=== PATIENT | female | born 1955 | race Hispanic/Latino ===

== ENCOUNTER → 2017-11-24 | Outpatient (CLI) | payer OTHER ==
[~2017-11-24] MED LIST: ASPIR 8181 MG PO; FLOVENT HFA12 GM; LEXAPRO10 MG PO; LOSARTAN POTASS25 MG PO; METOPROLOL TART25 MG PO; MULTI-VITAMIN1 EACH PO; SINGULAIR10 MG PO
--- NOTE | 2017-11-24 10:38 | Diagnostic Imaging Report ---
EXAMINATION: MRI of the brain without contrast. HISTORY: Left-sided headache and tightness on the left side of the face. Migraine headaches. COMPARISON: None. TECHNIQUE: Sagittal T2; axial DWI, T2, FLAIR, T1-IR, T2 gradient echo; coronal FLAIR. IMAGE QUALITY: Adequate. FINDINGS: Parenchyma: 1. No abnormal signal intensity 2. No mass, hemorrhage, acute or chronic infarcts. Skull: Unremarkable. Vessels: Expected flow voids present in the major arteries and dural sinuses. Extra-axial spaces: No abnormal signal intensity or mass effect. Brain volume: Within normal limits for age. Ventricles: No hydrocephalus or displacement. Foramen magnum: Unremarkable. Sella: Unremarkable. Paranasal / mastoid sinuses: No significant inflammatory disease. IMPRESSION: No intracranial abnormalities. Signed by: Dr. Edie Driver M.D. on 11/24/2017 10:35 AM
== END ==
LOC: MRI 07:59
PROVIDERS: ATTEND Psychiatry & Neurology Clinical Neurophysiology
DX: G43.019 Migraine without aura, intractable, without status migrainosus (principal)
CPT/HCPCS: 70551

== ENCOUNTER 2018-05-26 12:47 | Emergency (ER) | payer OTHER ==
[~2018-05-26] VITALS: Ht 170.2 cm; Wt 95.3 kg
--- OUTSIDE RECORDS SUMMARY | 2018-05-26 12:50 | XMS REPORT ---
Author Author Liliana Granger [facility] eClinicalWorks Address Unknown Phone Unavailable Care Team Providers Care Training Executive Name Role Phone Liliana Granger Unavailable Allergies, Adverse Reactions, Alerts Substance Reaction Event Type sulfa Info Not Available Drug Allergy Encounters Encounter Location Date FYI [facility] Dec 12, 2013 Refill [facility] Jan 23, 2014 MEDICATION REFILL [facility] Mar 29, 2014 Refill [facility] Oct 31, 2014 consult on stress and anxiety [facility] Sep 26, 2013 DISCUSS MEDS [facility] Oct 31, 2013 FYI/Referral [facility] Dec 05, 2013 CPAP Follow Up [facility] Jan 21, 2015 FOLLOW UP [facility] Nov 21, 2014 Night 2 Sleep Study [facility] Jan 08, 2015 New Refill Request [facility] Feb 16, 2015 leg cramps [facility] Mar 13, 2015 SOFT TISSUE/LAURA [facility] Feb 05, 2015 New Refill Request [facility] Feb 13, 2015 Problems Problem Type Condition ICD-9 Code Onset Dates Condition Status Problem Anxiety F41.9 Active Problem Smoker 305.1 Active Problem TIA (transient ischemic attack) 435.9 Active Problem Depression with anxiety F41.8 Active Problem Tobacco abuse counseling Z71.6 Active Problem Essential hypertension I10 Active Problem Obstructive sleep apnea G47.33 Active Problem Prediabetes R73.09 Active Problem Hyperglycemia R73.9 Active Problem Vitamin D deficiency E55.9 Active Assessment Morbid obesity due to excess calories E66.01 Active Assessment Headache R51 Active Assessment Depression F32.9 Active Assessment BMI 35.0-35.9,adult Z68.35 Active Assessment Leg cramps R25.2 Active Medications Medication Code System Code Instructions Start Date End Date Status Dosage Fish Oil 9flats [address]-82 1000 MG Orally Once a day Active 1 capsule Metoprolol Succinate ER [facility] [address]-68 25 MG Orally Once a day Active 1 tablet Losartan Potassium [facility] [address]-11 50.0 Milligram Orally Once a day Active 1 tablet Aspir-81 [facility] [address]-62 81 MG Orally Once a day Active 1 tablet Lexapro [facility] [address]-05 20 mg Orally Once a day Oct 31, 2013 Active 1 tablet Klonopin [facility] [address]-82 0.5 MG Orally once a day PRN Sep 26, 2013 Active 1 tablet Omeprazole [facility] [address]-84 20 mg Orally Once a day Active 1 capsule Lamisil [facility] [address]-68 250 MG Orally Once a day Jan 21, 2015 April 21, 2015 Active 1 tablet Multi For Her 50+ [facility] [address]88 Orally Active Unknown Social History Social History Element Qualifiers Date Reported 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 3 Mar 13, 2015 Last Colonoscopy: . 2007Mar 13, 2015 Tobacco Use: . Are you a: current smoker, How many packs per day? less than a half pack, How many years have you smoked? greater than 30 Mar 13, 2015 Flu Vaccine: . 2014Mar 13, 2015 Use of recreational / street drugs? . Answer: No Mar 13, 2015 Do you have pets? . Status: Yes, Type: dog(s) Mar 13, 2015 Ethnicity . Status , Is somali your primary language? Yes Mar 13, 2015 Marital Status: . , Mar 13, 2015 Caffeine intake? . Status: Yes, What type: Coffee, Soft Drinks Mar 13, 2015 Do you exercise? . Answer: No Mar 13, 2015 Depression Screening: . positive Mar 13, 2015 Do you drink alcohol? . Status: Yes, Type: Wine, Liquor, How often? Rarely, How much? Socially Mar 13, 2015 Family history Qualifier Description Comment Date Reported Maternal Grandmother Comment not available Mar 13, 2015 Paternal Grandmother Comment not available Mar 13, 2015 Siblings alive Comment not available Mar 13, 2015 Maternal Grandfather Comment not available Mar 13, 2015 Children alive 1 son - PTSD 2 sons - high cholesterol Mar 13, 2015 Father Comment not available Mar 13, 2015 Paternal Grandfather Comment not available Mar 13, 2015 Mother Comment not available Mar 13, 2015 Other: Comment not available Mar 13, 2015 Vital Signs Date/Time: Mar 13, 2015 Weight 219 lbs Height 66 in Cardiac Monitoring Heart Rate 60 /min Blood Pressure Diastolic 76 mm Hg Blood Pressure Systolic 130 mm Hg Results Comp. Metabolic Panel (14) Summary Purpose eClinicalWorks Submission
--- OUTSIDE RECORDS SUMMARY | 2018-05-26 12:50 | XMS REPORT ---
Author Author Nisha Brownlee eClinicalWorks Address Unknown Phone Unavailable Care Team Providers Care Upholstery Handler Name Role Phone Nisha Brownlee CP Unavailable Allergies, Adverse Reactions, Alerts Substance Reaction Event Type sulfa Info Not Available Drug Allergy Encounters Encounter Location Date FYI [facility] Dec 12, 2013 Refill [facility] Jan 23, 2014 MEDICATION REFILL [facility] Mar 29, 2014 Refill [facility] Oct 31, 2014 consult on stress and anxiety [facility] Sep 26, 2013 DISCUSS MEDS [facility] Oct 31, 2013 FYI/Referral [facility] Dec 05, 2013 CPAP Follow Up [facility] Jan 21, 2015 FOLLOW UP [facility] Nov 21, 2014 Night 2 Sleep Study [facility] Jan 08, 2015 fMLA paper work [facility] Mar 17, 2015 New Refill Request [facility] Feb 16, 2015 leg cramps [facility] Mar 13, 2015 SOFT TISSUE/LAURA [facility] Feb 05, 2015 New Refill Request [facility] Feb 13, 2015 Problems Problem Type Condition ICD-9 Code Onset Dates Condition Status Problem Anxiety F41.9 Active Problem Obstructive sleep apnea G47.33 Active Problem Prediabetes R73.09 Active Problem Cramp of both lower extremities R25.2 Active Problem Essential hypertension I10 Active Problem Left-sided headache R51 Active Problem Hyperglycemia R73.9 Active Problem Vitamin D deficiency E55.9 Active Problem Depression with anxiety F41.8 Active Problem Tobacco abuse counseling Z71.6 Active Assessment Cramp of both lower extremities R25.2 Active Assessment Depression with anxiety F41.8 Active Assessment Obstructive sleep apnea G47.33 Active Assessment Left-sided headache R51 Active Assessment Prediabetes R73.09 Active Assessment Essential hypertension I10 Active Problem TIA (transient ischemic attack) G45.9 Active Medications Medication Code System Code Instructions Start Date End Date Status Dosage Lamisil [facility] [address]-83 250 MG Orally Once a day Jan 21, 2015 April 21, 2015 Active 1 tablet Tramadol-Acetaminophen [facility] [address]-85 37.5-325 MG Orally Q12 PRN Mar 17, 2015 Mar 31, 2015 Active 2 tablets as needed Aspir-[address] [facility] [address]-63 81 MG Orally Once a day Active 1 tablet Multi For Her 50+ [facility] [address] Orally Active Unknown Losartan Potassium [facility] [address]-61 50.0 Milligram Orally Once a day Active 1 tablet Metoprolol Succinate ER [facility] [address]-14 25 MG Orally Once a day Active 1 tablet Lexapro [facility] [address]-15 20 mg Orally Once a day Oct 31, 2013 Active 1 tablet Fish Oil [facility] [address]-71 1000 MG Orally Once a day Active 1 capsule Social History Social History Element Qualifiers Date Reported 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 2007Mar 17, 2015 Tobacco Use: . Are you a: current smoker, How many packs per day? less than a half pack, How many years have you smoked? greater than 30 Mar 17, 2015 Flu Vaccine: . 2014Mar 17, 2015 Use of recreational / street drugs? . Answer: No Mar 17, 2015 Do you have pets? . Status: Yes, Type: dog(s) Mar 17, 2015 Ethnicity . Status , Is persian your primary language? Yes Mar 17, 2015 Marital Status: . , Mar 17, 2015 Caffeine intake? . Status: Yes, What type: Coffee, Soft Drinks Mar 17, 2015 Do you exercise? . Answer: No Mar 17, 2015 Depression Screening: . positive Mar 17, 2015 Do you drink alcohol? . Status: Yes, Type: Wine, Liquor, How often? Rarely, How much? Socially Mar 17, 2015 Vital Signs Date/Time: Mar 17, 2015 Weight 220 lbs Height 66 in Cardiac Monitoring Heart Rate 74 /min Blood Pressure Diastolic 80 mm Hg Blood Pressure Systolic 122 mm Hg Summary Purpose eClinicalWorks Submission
--- OUTSIDE RECORDS SUMMARY | 2018-05-26 12:50 | XMS REPORT ---
Author Author Liset Kohli Organization eClinicalWorks Address Unknown Phone Unavailable Care Team Providers Care Heavy Duty Diesel Mechanic Name Role Phone Liset Kohli Unavailable Encounters Encounter Location Date FYI [facility] Dec 12, 2013 Refill [facility] Jan 23, 2014 MEDICATION REFILL [facility] Mar 29, 2014 Refill [facility] Oct 31, 2014 consult on stress and anxiety [facility] Sep 26, 2013 DISCUSS MEDS [facility] Oct 31, 2013 FYI/Referral [facility] Dec 05, 2013 CPAP Follow Up [facility] Jan 21, 2015 FOLLOW UP [facility] Nov 21, 2014 Night 2 Sleep Study [facility] Jan 08, 2015 fMLA paper work [facility] Mar 17, 2015 Unknown [facility] Mar 24, 2015 New Refill Request [facility] Feb 16, 2015 leg cramps [facility] Mar 13, 2015 SOFT TISSUE/LAURA [facility] Feb 05, 2015 New Refill Request [facility] Feb 13, 2015 Problems Problem Type Condition ICD-9 Code Onset Dates Condition Status Problem Anxiety F41.9 Active Problem Obstructive sleep apnea G47.33 Active Problem Prediabetes R73.09 Active Problem TIA (transient ischemic attack) G45.9 Active Problem Cramp of both lower extremities R25.2 Active Problem Essential hypertension I10 Active Problem Left-sided headache R51 Active Problem Hyperglycemia R73.9 Active Problem Vitamin D deficiency E55.9 Active Problem Depression with anxiety F41.8 Active Problem Tobacco abuse counseling Z71.6 Active Social History Social History Element Qualifiers Date [...] 17, 2015 Ethnicity . Status , Is nicaraguan your primary language? Yes Mar 17, 2015 Marital Status: . , Mar 17, 2015 Caffeine intake? . Status: Yes, What type: Coffee, Soft Drinks Mar 17, 2015 Do you exercise? . Answer: No Mar 17, 2015 Depression Screening: . positive Mar 17, 2015 Do you drink alcohol? . Status: Yes, Type: Wine, Liquor, How often? Rarely, How much? Socially Mar 17, 2015 Summary Purpose eClinicalWorks Submission
--- OUTSIDE RECORDS SUMMARY | 2018-05-26 12:50 | XMS REPORT | Encounter Summary ---
Author Organization Unknown Address [address] [place] [id number] Phone [phone] Care Team Providers Care Laborer Stores Name Role Phone Lavell Ramos 3 [phone] Reason for Visit Medical Complaint Instructions 1. Viral upper respiratory tract infection benzonatate 200 mg capsule Medrol (Shalom) 4 mg tablets in a dose pack rapid flu (A+B) 2. Pain in throat sore throat: care instructions rapid strep group A, throat 3. Headache headache: care instructions Discussion Note Pt is in NAD; Verbalizes understanding of all instructions with no questions at this time. Plan of Care Patient Instructions Take Benzonatate for cough as directed. Use over the counter chloraseptic spray and use as per package insert for sore throat. Start trial of over the counter afrin for nasal congestion for 3 days only. Continue flonase nasal spray and montelukast (singulair) as instructed by your PCP. Alternate with Ibuprofen and acetaminophen every 4hrs as needed for pain/fever/headache. Proper hydration and rest. Take steroid taper withh food as directed. Return to work/school if free of fever for 24-hrs. Do not share any utensils/cups, no kissing, recommend hand washing after coughing/sneezing/blowing nose and cover face when you do so. Take medications as prescribed. Return to clinic or follow up with your PCP within 2- 3 days if symptoms worsen as discussed. Reminders Provider Appointments None recorded. Lab Rapid Flu (A+B) 01/21/2017 [facility] Rapid Strep Group a, Throat 01/21/2017 [facility] Referral None recorded. Procedures None recorded. Surgeries None recorded. Imaging None recorded. Medications Name Start Date benzonatate 200 mg capsule Take 1 capsule 3 times a day by oral route as needed. escitalopram 20 mg tablet fluticasone 50 mcg/actuation nasal spray,suspension 01/21/2017 losartan 50 mg tablet Medrol (Shalom) 4 mg tablets in a dose pack TAKE PO DIRECTED montelukast 10 mg tablet 01/21/2017 Medications Administered None recorded. Vitals Height Weight BMI Blood Pressure 5 ft 7 in 210 lbs 32.9 kg/m2 134/90 mm[Hg] Lab Results Date Name Specimen Result Interpretation Description Value Range Status Address Rapid Strep Group a, Throat Result negative [facility]: [facility] Swab Location Left and Right tonsillar pillars [facility]: [address] [facility] Rapid Flu (A+B) Influenza a negative [facility]: [address] [facility] Influenza B negative [facility]: [facility] Allergies Code Code System Name Reaction Severity Status Onset 152867 RxNorm Bactrim Active Problems None recorded. Procedures Date Name Performed by Appendectomy Information not available Tonsillectomy Information not available Cholecystectomy Information not available Tubal Ligation Information not available Vaccine List None recorded. Social History Smoking Status Current Every Day Smoker Past Encounters 01/21/2017 Viral Upper Respiratory Tract Infection; Pain in Throat; Headache Nellie Avila, TRADING MANAGER-C: [address] [place] [address], Ph. History of Present Illness [id number] Reported By: Patient HPI: Quality: symptoms worse during the day. Duration: 2 days. Context: no ill contacts, no tick/insect bites, no recent travel, no new medications. Associated Symptoms: no fever/chills, no muscle aches, no rash, no lethargy, headache, cough, nasal passage blockage (stuffiness), nasal discharge; sore throat. Modifying Factors nothing gives relief Review of Systems:ROS as noted in the HPI Review of Systems Basic Reported By: Patient Physical Exam Adult Basic, 14-21 Yr Male, Adult Female Complete, Adult Male Complete Reported By: Patient Constitutional: General Appearance: healthy-appearing, well-nourished, well-developed. Level of Distress: NAD. Ambulation: ambulating normally Psychiatric: Mental Status: active and alert. Orientation: to time, to place, to person Eyes: Lids and Conjunctivae: non-injected, no discharge, no pallor. Pupils: PERRLA, equal size, round, reactive to light. Corneas: grossly intact. EOM: EOMI. Lens: clear. Vision: peripheral vision grossly intact [id number]-[id number]: Ears: no lesions on external ear, no outer ear tenderness, EACs clear, TMs clear. Hearing: no hearing loss. Nose: no lesions on external nose, nares patent, no septal deviation, nasal passages clear, no sinus tenderness, nasal discharge--rhinorrhea, post nasal drip; pink and edematous nasal turbinates bilaterally. Lips, Teeth, and Gums: no mouth or lip ulcers, no bleeding gums, normal dentition. Oropharynx: moist mucous membranes, no erythema, no exudates, tonsils absent Neck: Neck: supple. Lymph Nodes: no cervical LAD Lungs: Respiratory effort: no dyspnea, no tachypnea, no use of accessory muscles, no intercostal retractions. Auscultation: breath sounds normal, good air movement Cardiovascular: Heart Auscultation: RRR, no murmurs Neurologic: Gait and Station: normal gait, normal station. Cranial Nerves: grossly intact. Sensation: grossly intact. Reflexes: deep tendon reflexes 2+ bilaterally throughout
--- OUTSIDE RECORDS SUMMARY | 2018-05-26 12:50 | XMS REPORT | Continuity of Care Document ---
Author Author [facility] Interface Address Unknown Phone Unavailable Problems Problem Status Onset Date Classification Date Reported Comments Source Viral upper respiratory tract infection 01/21/2017 Diagnosis 01/21/2017 [facility] Pain in throat 01/21/2017 Diagnosis 01/21/2017 [facility] Headache 01/21/2017 Diagnosis 01/21/2017 [facility] Obstructive sleep apnea Active Problem 10/18/2015 [facility] Hyperglycemia Active Problem 10/18/2015 [facility] Vitamin D deficiency Active Problem 10/18/2015 [facility] Seasonal allergies Active Problem 10/18/2015 [facility] Left-sided headache Active Problem 10/18/2015 [facility] Moderate persistent asthma with acute exacerbation Active Problem 10/18/2015 [facility] Depression with anxiety Active Problem 10/18/2015 [facility] Tobacco abuse counseling Active Problem 10/18/2015 [facility] Cramp of both lower extremities Active Problem 10/18/2015 [facility] Essential hypertension Active Problem 10/18/2015 [facility] Varicose veins of lower extremity Active Problem 10/18/2015 [facility] TIA Active Problem 10/18/2015 [facility] Anxiety Active Problem 10/18/2015 [facility] Atrial fibrillation, unspecified type Active Problem 10/18/2015 [facility] Prediabetes Active Problem 10/18/2015 [facility] Smoker Active Problem 03/15/2015 [facility] TIA Active Problem 03/15/2015 [facility] Morbid obesity due to excess calories Active Diagnosis 03/15/2015 [facility] Headache Active Diagnosis 03/15/2015 [facility] Depression Active Diagnosis 03/15/2015 [facility] BMI 35.0-35.9,adult Active Diagnosis 03/15/2015 [facility] Leg cramps Active Diagnosis 03/15/2015 [facility] Acute right ankle pain Active Diagnosis 08/15/2015 [facility] Cough Active Diagnosis 05/08/2015 [facility] Medications Medication Details Route Status Patient Instructions Ordering Provider Order Date Source Fluticasone propionate 0.05 MG/ACTUAT Metered Dose Nasal Dennard fluticasone 50 mcg/actuation nasal spray,suspension Active 01/21/2017 [facility] montelukast 10 MG Oral Tablet montelukast 10 mg tablet Active 01/21/2017 [facility] Naproxen 1 tablet as needed Orally Active 500 mg Orally every 12 hrs [place] 08/13/2015 [facility] Albuterol Sulfate HFA 2 puffs as needed Inhalation Active 108 MCG/ACT Inhalation every 4-6 hrs PRN [place] 05/06/2015 [facility] Benzonatate 1 capsule as needed Orally Active 200 MG Orally Three times a day PRN [place] 05/06/2015 [facility] Tramadol-Acetaminophen 2 tablets as needed Orally Active 37.5- 325 MG Orally Q12 PRN [place] 03/17/2015 [facility] Lamisil 1 tablet Orally Active 250 MG Orally Once a day [place] 01/21/2015 [facility] Lexapro 1 tablet Orally Active 20 mg Orally Once a day [place] 10/31/2013 [facility] Klonopin 1 tablet Orally Active 0.5 MG Orally once a day PRN [place] 09/26/2013 [facility] benzonatate 200 MG Oral Capsule benzonatate 200 mg capsule Take 1 capsule 3 times a day by oral route as needed. Active [facility] Escitalopram 20 MG Oral Tablet escitalopram 20 mg tablet Active [facility] Losartan Potassium 50 MG Oral Tablet losartan 50 mg tablet Active [facility] Medrol (Shalom) 4 mg tablets in a dose pack Medrol (Shalom) 4 mg tablets in a dose pack TAKE PO DIRECTED Active [facility] Fish Oil 1 capsule Orally Active 1000 MG Orally Once a day [facility] Metoprolol Succinate ER 1 tablet Orally Active 25 MG Orally Once a day [facility] Losartan Potassium 1 tablet Orally Active 50 MG Orally Once a day [facility] Aspir-81 1 tablet Orally Active 81 MG Orally Once a day Kem [facility] Omeprazole 1 capsule Orally Active 20 mg Orally Once a day [place] [facility] Multi For Her 50+ Unknown Orally Active Orally Kem [facility] Singulair 1 tablet in the evening Orally Active 10 mg Orally Once a day Kem [facility] Allergies, Adverse Reactions, Alerts Substance Category Reaction Severity Reaction type Status Date Reported Comments Source sulfa Adverse Reaction Info Not Available Adverse Reaction Active 08/13/2015 [facility] Bactrim Allergy to substance 01/21/2017 [facility] Immunizations Immunization Date Given Site Status Last Updated Comments Source Results Order Name Results Value Reference Range Date Interpretation Comments Source RESULT negative 01/21/2017 [facility] SWAB LOCATION Left and Right tonsillar pillars 01/21/2017 [facility] Influenza A negative 01/21/2017 [facility] Influenza B negative 01/21/2017 [facility] Vital Signs Vital Sign Value Date Comments Source Diastolic (mm Hg) 90 01/21/2017 [facility] Height 67 01/21/2017 [facility] Systolic (mm Hg) 134 01/21/2017 [facility] Weight 210 01/21/2017 [facility] Weight 229 08/13/2015 [facility] Height 66 08/13/2015 [facility] Heart Rate 78 08/13/2015 [facility] Diastolic (mm Hg) 80 08/13/2015 [facility] Systolic (mm Hg) 130 08/13/2015 [facility] Weight 226 05/06/2015 [facility] Height 66 05/06/2015 [facility] Heart Rate 80 05/06/2015 [facility] Diastolic (mm Hg) 80 05/06/2015 [facility] Systolic (mm Hg) 130 05/06/2015 [facility] Weight 220 03/17/2015 [facility] Height 66 03/17/2015 [facility] Heart Rate 74 03/17/2015 [facility] Diastolic (mm Hg) 80 03/17/2015 [facility] Systolic (mm Hg) 122 03/17/2015 [facility] Weight 219 03/13/2015 [facility] Height 66 03/13/2015 [facility] Heart Rate 60 03/13/2015 [facility] Diastolic (mm Hg) 76 03/13/2015 [facility] Systolic (mm Hg) 130 03/13/2015 [facility] Encounters Location Location Details Encounter Type Encounter Number Reason For Visit Attending Provider ADM Date DC Date Status Source [facility] consult on stress and anxiety [id number] 09/26/2013 09/26/2013 [facility] consult on stress and anxiety [id number] 09/26/2013 09/26/2013 [facility] consult on stress and anxiety [id number] 09/26/2013 09/26/2013 [facility] consult on stress and anxiety [id number] 09/26/2013 09/26/2013 [facility] consult on stress and anxiety [id number] 09/26/2013 09/26/2013 [facility] consult on stress and anxiety [id number] 09/26/2013 09/26/2013 [facility] consult on stress and anxiety [id number] 09/26/2013 09/26/2013 [facility] consult on stress and anxiety [id number] 09/26/2013 09/26/2013 [facility] DISCUSS MEDS [id number] 10/31/2013 10/31/2013 [facility] DISCUSS MEDS [id number] 10/31/2013 10/31/2013 [facility] DISCUSS MEDS [id number] 10/31/2013 10/31/2013 [facility] DISCUSS MEDS [id number] 10/31/2013 10/31/2013 [facility] DISCUSS MEDS [id number] 10/31/2013 10/31/2013 [facility] DISCUSS MEDS [id number] 10/31/2013 10/31/2013 [facility] DISCUSS MEDS [id number] 10/31/2013 10/31/2013 [facility] DISCUSS MEDS [id number] 10/31/2013 10/31/2013 [facility] FYI/Referral [id number] 12/05/2013 12/05/2013 [facility] FYI/Referral [id number] 12/05/2013 12/05/2013 [facility] FYI/Referral [id number] 12/05/2013 12/05/2013 [facility] FYI/Referral [id number] 12/05/2013 12/05/2013 [facility] FYI/Referral [id number] 12/05/2013 12/05/2013 [facility] FYI/Referral [id number] 12/05/2013 12/05/2013 [facility] FYI/Referral [id number] 12/05/2013 12/05/2013 [facility] FYI/Referral [id number] 12/05/2013 12/05/2013 [facility] [id number] 12/12/2013 12/12/2013 [facility] [id number] 12/12/2013 12/12/2013 [facility] [id number] 12/12/2013 12/12/2013 [facility] [id number] 12/12/2013 12/12/2013 [facility] [id number] 12/12/2013 12/12/2013 [facility] [place] [id number] 12/12/2013 12/12/2013 [facility] [id number] 12/12/2013 12/12/2013 [facility] [place]NA[place] [id number] 12/12/2013 12/12/2013 [facility] Refill [id number] 01/23/2014 01/23/2014 [facility] Refill [id number] 01/23/2014 01/23/2014 [facility] Refill [id number] 01/23/2014 01/23/2014 [facility] Refill [id number] 01/23/2014 01/23/2014 [facility] Refill [id number] 01/23/2014 01/23/2014 [facility] Refill [id number] 01/23/2014 01/23/2014 [facility] Refill [id number] 01/23/2014 01/23/2014 [facility] Refill [id number] 01/23/2014 01/23/2014 [facility] MEDICATION REFILL [id number] 03/29/2014 03/29/2014 [facility] MEDICATION REFILL [id number] 03/29/2014 03/29/2014 [facility] MEDICATION REFILL [id number] 03/29/2014 03/29/2014 [facility] MEDICATION REFILL [id number] 03/29/2014 03/29/2014 [facility] MEDICATION REFILL [id number] 03/29/2014 03/29/2014 [facility] MEDICATION REFILL [id number] 03/29/2014 03/29/2014 [facility] MEDICATION REFILL [id number] 03/29/2014 03/29/2014 [facility] MEDICATION REFILL [id number] 03/29/2014 03/29/2014 [facility] Refill [id number] 10/31/2014 10/31/2014 [facility] Refill [id number] 10/31/2014 10/31/2014 [facility] Refill [id number] 10/31/2014 10/31/2014 [facility] Refill [id number] 10/31/2014 10/31/2014 [facility] Refill [id number] 10/31/2014 10/31/2014 [facility] Refill [id number] 10/31/2014 10/31/2014 [facility] Refill [id number] 10/31/2014 10/31/2014 [facility] Refill [id number] 10/31/2014 10/31/2014 [facility] FOLLOW UP [id number] 11/21/2014 11/21/2014 [facility] FOLLOW UP [id number] 11/21/2014 11/21/2014 [facility] FOLLOW UP [id number] 11/21/2014 11/21/2014 [facility] FOLLOW UP [id number] 11/21/2014 11/21/2014 [facility] FOLLOW UP [id number] 11/21/2014 11/21/2014 [facility] FOLLOW UP [id number] 11/21/2014 11/21/2014 [facility] FOLLOW UP [id number] 11/21/2014 11/21/2014 [facility] FOLLOW UP [id number] 11/21/2014 11/21/2014 [facility] Night 2 Sleep Study [id number] 01/09/2015 01/09/2015 [facility] Night 2 Sleep Study [id number] 01/09/2015 01/09/2015 [facility] Night 2 Sleep Study [id number] 01/09/2015 01/09/2015 [facility] Night 2 Sleep Study [id number] 01/09/2015 01/09/2015 [facility] Night 2 Sleep Study [id number] 01/09/2015 01/09/2015 [facility] Night 2 Sleep Study [id number] 01/09/2015 01/09/2015 [facility] Night 2 Sleep Study [id number] 01/09/2015 01/09/2015 [facility] Night 2 Sleep Study [id number] 01/09/2015 01/09/2015 [facility] CPAP Follow Up [id number] 01/21/2015 01/21/2015 [facility] CPAP Follow Up [id number] 01/21/2015 01/21/2015 [facility] CPAP Follow Up [id number] 01/21/2015 01/21/2015 [facility] CPAP Follow Up [id number] 01/21/2015 01/21/2015 [facility] CPAP Follow Up [id number] 01/21/2015 01/21/2015 [facility] CPAP Follow Up [id number] 01/21/2015 01/21/2015 [facility] CPAP Follow Up [id number] 01/21/2015 01/21/2015 [facility] CPAP Follow Up [id number] 01/21/2015 01/21/2015 [facility] SOFT TISSUE/LAURA [id number] 02/05/2015 02/05/2015 [facility] SOFT TISSUE/LAURA [id number] 02/05/2015 02/05/2015 [facility] SOFT TISSUE/LAURA [id number] 02/05/2015 02/05/2015 [facility] SOFT TISSUE/LAURA [id number] 02/05/2015 02/05/2015 [facility] SOFT TISSUE/LAURA [id number] 02/05/2015 02/05/2015 [facility] SOFT TISSUE/LAURA [id number] 02/05/2015 02/05/2015 [facility] SOFT TISSUE/LAURA [id number] 02/05/2015 02/05/2015 [facility] SOFT TISSUE/LAURA [id number] 02/05/2015 02/05/2015 [facility] New Refill Request [id number] 02/13/2015 02/13/2015 [facility] New Refill Request [id number] 02/13/2015 02/13/2015 [facility] New Refill Request [id number] 02/13/2015 02/13/2015 [facility] New Refill Request [id number] 02/13/2015 02/13/2015 [facility] New Refill Request [id number] 02/13/2015 02/13/2015 [facility] New Refill Request [id number] 02/13/2015 02/13/2015 [facility] New Refill Request [id number] 02/13/2015 02/13/2015 [facility] New Refill Request [id number] 02/13/2015 02/13/2015 [facility] New Refill Request [id number] 02/16/2015 02/16/2015 [facility] New Refill Request [id number] 02/16/2015 02/16/2015 [facility] New Refill Request [id number] 02/16/2015 02/16/2015 [facility] New Refill Request [id number] 02/16/2015 02/16/2015 [facility] New Refill Request [id number] 02/16/2015 02/16/2015 [facility] New Refill Request [id number] 02/16/2015 02/16/2015 [facility] New Refill Request [id number] 02/16/2015 02/16/2015 [facility] New Refill Request [id number] 02/16/2015 02/16/2015 [facility] leg cramps [id number] 03/13/2015 03/13/2015 [facility] leg cramps [id number] 03/13/2015 03/13/2015 [facility] leg cramps [id number] 03/13/2015 03/13/2015 [facility] leg cramps [id number] 03/13/2015 03/13/2015 [facility] leg cramps [id number] 03/13/2015 03/13/2015 [facility] leg cramps [id number] 03/13/2015 03/13/2015 [facility] leg jose [id number] 03/13/2015 03/13/2015 [facility] leg cramps [id number] 03/13/2015 03/13/2015 [facility] [place] paper work [id number] 03/17/2015 03/17/2015 [facility] [place] paper work [id number] 03/17/2015 03/17/2015 [facility] [place] paper [place] [id number] 03/17/2015 03/17/2015 [facility] [place] paper [place] [id number] 03/17/2015 03/17/2015 [facility] [place] [id number] 03/17/2015 03/17/2015 [facility] [place] [id number] 03/17/2015 03/17/2015 [facility] [place] [id number] 03/17/2015 03/17/2015 [facility] [id number] 03/24/2015 03/24/2015 [facility] Unknown [id number] 03/24/2015 03/24/2015 [facility] Unknown [id number] 03/24/2015 03/24/2015 [facility] Unknown [id number] 03/24/2015 03/24/2015 [facility] Unknown [id number] 03/24/2015 03/24/2015 [facility] Unknown [id number] 03/24/2015 03/24/2015 [facility] Coughing [id number] 05/06/2015 05/06/2015 [facility] Coughing [id number] 05/06/2015 05/06/2015 [facility] Coughing [id number] 05/06/2015 05/06/2015 [facility] Coughing [id number] 05/06/2015 05/06/2015 [facility] Coughing [id number] 05/06/2015 05/06/2015 [facility] Unknown [id number] 05/15/2015 05/15/2015 [facility] Unknown [id number] 05/15/2015 05/15/2015 [facility] Unknown [id number] 05/15/2015 05/15/2015 [facility] Unknown [id number] 05/15/2015 05/15/2015 [facility] Update Demographics - Personal Info [id number] 05/23/2015 05/23/2015 [facility] Update Demographics - Personal Info [id number] 05/23/2015 05/23/2015 [facility] Update Demographics - Personal Info [id number] 05/23/2015 05/23/2015 [facility] SWOLLEN ANKLE [id number] 08/13/2015 08/13/2015 [facility] SWOLLEN ANKLE [id number] 08/13/2015 08/13/2015 [facility] Needs call back from Medical Staff [id number] 10/17/2015 10/17/2015 [facility] JOLEEN Sheron - [id number] Avila, [facility]: [address], [place], [place] [address], Ph. [id number] Nellie Avila 01/21/2017 [facility] Procedures Procedure Code Date Perfomer Comments Source Appendectomy [facility] Tonsillectomy [facility] Cholecystectomy [facility] Tubal Ligation [facility]
--- OUTSIDE RECORDS SUMMARY | 2018-05-26 12:51 | XMS REPORT ---
Author Author [facility] Address Unknown Phone Unavailable Care Team Providers Care Occ Ther Name Role Phone Glory MCMAOHN Unavailable Unavailable Problems This patient has no known problems. Allergies, Adverse Reactions, Alerts This patient has no known allergies or adverse reactions. Medications This patient has no known medications. Results Test Description Test Time Test Comments Text Results Atomic Results Result Comments SCR MAMM BILATERAL CASE CAD DIGITAL 2017-12-27 08:26:29 - SCR MAMM BILATERAL CASE CAD DIGITALBILATERAL DIGITAL SCREENING MAMMOGRAM 3D/2D WITH CAD: 12/06/2017Digital breast tomosynthesis was performed in addition to routine CC and MLO views. Current mammographic images were evaluated by either a [employer] M- Vu or a [employer] CAD (computer aided detection system). Comparison is made to exams dated 02/13/2015 mammogram and 10/30/2012 mammogram - [facility]. There are scattered fibroglandular tissues in both breasts. No suspicious mass, architectural distortion, malignant type calcification, or lymph node abnormality detected. Breast architecture is stable compared to prior exams.IMPRESSION: NEGATIVEThere is no mammographic evidence of malignancy. Resume annual screening mammography in one year. Dodie montana/aj:12/27/2017 08:26:29 Attending Technologist: Julia Diaz MM, [employer] MammographyImaging Technologist: Anita Smart MM, [facility] [employer] Mammographyletter sent: BIRADS 1-2 Normal Mammogram BI-RADS: 1 Negative MRI BRAIN WO 2017-11-24 09:37:00 [facility] [address] [address] Patient Name: OSEI NELSON MR #: [id number] : 1955 Age/Sex: 62/F Req #: [id number] Adm Physician: Ordered by: CASSIDY MCMAHON M.D. Report #: [id number] Location: MRI Room/Bed: Procedure: [id number] MRI/MRI BRAIN WO Exam Date: Exam Time: REPORT STATUS: Signed EXAMINATION: MRI of the brain without contrast. HISTORY: Left-sided headache and tightness on the left side of the face. Migraine headaches. COMPARISON: None. TECHNIQUE: Sagittal T2; axial DWI, T2, FLAIR, T1-IR, T2 gradient echo; coronal FLAIR. IMAGE QUALITY: Adequate. FINDINGS: Parenchyma: 1. No abnormal signal intensity 2. No mass, hemorrhage, acute or chronic infarcts. Skull: Unremarkable. Vessels: Expected flow voids present in the major arteries and dural sinuses. Extra-axial spaces: No abnormal signal intensity or mass effect. Brain volume: Within normal limits for age. Ventricles: No hydrocephalus or displacement. Foramen magnum: Unremarkable. Sella: Unremarkable. Paranasal / mastoid sinuses: No significant inflammatory disease. IMPRESSION: No intracranial abnormalities. Signed by: Dr. Marc Driver M.D. on 11/24/2017 10:35 AM Dictated By: MARC DRIVER MD [id number] Transcribed By: RICARDO on 11/24/17 1035 COPY TO: CASSIDY MCMAHON MD
--- OUTSIDE RECORDS SUMMARY | 2018-05-26 12:51 | XMS REPORT ---
Author Author Nisha Brownlee [employer] Address Unknown Phone Unavailable Care Team Providers Care Office Rn Name Role Phone Nisha Brownlee CP Unavailable Allergies, Adverse Reactions, Alerts Substance Reaction Event Type sulfa Info Not Available Drug Allergy Encounters Encounter Location Date FYI [facility] Dec 12, 2013 Refill [facility] Jan 23, 2014 MEDICATION REFILL [facility] Mar 29, 2014 Refill [facility] Oct 31, 2014 consult on stress and anxiety [facility] Sep 26, 2013 DISCUSS MEDS [facility] Oct 31, 2013 FYI/Referral [facility] Dec 05, 2013 CPAP Follow Up [facility] Jan 21, 2015 SWOLLEN ANKLE [facility] August 13, 2015 FOLLOW UP [facility] Nov 21, 2014 Night 2 Sleep Study [facility] Jan 08, 2015 Coughing [facility] May 06, 2015 Unknown [facility] May 15, 2015 fMLA paper work [facility] Mar 17, 2015 Unknown [facility] Mar 24, 2015 New Refill Request [facility] Feb 16, 2015 leg cramps [facility] Mar 13, 2015 SOFT TISSUE/LAURA [facility] Feb 05, 2015 New Refill Request [facility] Feb 13, 2015 Update Demographics - Personal Info [facility] May 23, 2015 Problems Problem Type Condition ICD-9 Code Onset Dates Condition Status Problem Obstructive sleep apnea G47.33 Active Problem Hyperglycemia R73.9 Active Problem Vitamin D deficiency E55.9 Active Problem Seasonal allergies J30.2 Active Problem Left-sided headache R51 Active Problem Moderate persistent asthma with acute exacerbation J45.41 Active Problem Depression with anxiety F41.8 Active Problem Tobacco abuse counseling Z71.6 Active Problem Cramp of both lower extremities R25.2 Active Problem Essential hypertension I10 Active Assessment Acute right ankle pain M25.571 Active Problem Varicose veins of lower extremity I83.93 Active Problem TIA (transient ischemic attack) G45.9 Active Assessment Essential hypertension I10 Active Problem Anxiety F41.9 Active Problem Atrial fibrillation, unspecified type I48.91 Active Problem Prediabetes R73.09 Active Medications Medication Code System Code Instructions Start Date End Date Status Dosage [facility] [address]-80 108 MCG/ACT Inhalation every 4-6 hrs PRN May 06, 2015 Active 2 puffs as needed Lexapro [facility] [address]-34 20 mg Orally Once a day Oct 31, 2013 Active 1 tablet Singulair [facility] [address]-18 10 mg Orally Once a day Active 1 tablet in the evening Aspir-81 [facility] [address]-51 81 MG Orally Once a day Active 1 tablet Fish Oil [facility] [address]-62 1000 MG Orally Once a day Active 1 capsule Losartan Potassium [facility] [address]-09 50 MG Orally Once a day Active 1 tablet Metoprolol Succinate ER [facility] [address]-11 25 MG Orally Once a day Active 1 tablet Naproxen [facility] [address]-62 500 mg Orally every 12 hrs August 13, 2015 August 27, 2015 Active 1 tablet as needed Multi For Her 50+ [facility] [address] Orally Active Unknown Social History Social History Element Qualifiers Date Reported 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 2007August 13, 2015 Tobacco Use: . Are you a: current smoker, How many packs per day? less than a half pack, How many years have you smoked? greater than 30 August 13, 2015 Flu Vaccine: . 2014August 13, 2015 Use of recreational / street drugs? . Answer: No August 13, 2015 Do you have pets? . Status: Yes, Type: dog(s) August 13, 2015 Ethnicity . Status , Is azeri your primary language? Yes August 13, 2015 Marital Status: . , August 13, 2015 Caffeine intake? . Status: Yes, What type: Coffee, Soft Drinks August 13, 2015 Do you exercise? . Answer: No August 13, 2015 Depression Screening: . positive August 13, 2015 Do you drink alcohol? . Status: Yes, Type: Wine, Liquor, How often? Rarely, How much? Socially August 13, 2015 Vital Signs Date/Time: August 13, 2015 Weight 229 lbs Height 66 in Cardiac Monitoring Heart Rate 78 /min Blood Pressure Diastolic 80 mm Hg Blood Pressure Systolic 130 mm Hg Summary Purpose [employer] Submission
--- OUTSIDE RECORDS SUMMARY | 2018-05-26 12:51 | XMS REPORT ---
Author Author Nisha Brownlee [employer] Address Unknown Phone Unavailable Care Team Providers Care Ham Trimmer Name Role Phone Nisha Brownlee CP Unavailable Allergies, Adverse Reactions, Alerts Substance Reaction Event Type sulfa Info Not Available Drug Allergy Encounters Encounter Location Date FYI [facility] Dec 12, 2013 Refill [facility] Jan 23, 2014 MEDICATION REFILL [facility] Mar 29, 2014 Refill [facility] Oct 31, 2014 consult on stress and anxiety [facility] Sep 26, 2013 DISCUSS MEDS [facility] Oct 31, 2013 FYI/Referral [facility] Dec 05, 2013 CPAP Follow Up [facility] Jan 21, 2015 FOLLOW UP [facility] Nov 21, 2014 Night 2 Sleep Study [facility] Jan 08, 2015 Coughing [facility] May 06, 2015 fMLA paper work [facility] Mar 17, 2015 Unknown [facility] Mar 24, 2015 New Refill Request [facility] Feb 16, 2015 leg cramps [facility] Mar 13, 2015 SOFT TISSUE/LAURA [facility] Feb 05, 2015 New Refill Request [facility] Feb [...] Active Problem Essential hypertension I10 Active Assessment Seasonal allergies J30.2 Active Assessment Essential hypertension I10 Active Assessment Cough R05 Active Problem Varicose veins of lower extremity I83.93 Active Problem TIA (transient ischemic attack) G45.9 Active Assessment Moderate persistent asthma with acute exacerbation J45.41 Active Problem Anxiety F41.9 Active Problem Atrial fibrillation, unspecified type I48.91 Active Problem Prediabetes R73.09 Active Medications Medication Code System Code Instructions Start Date End Date Status Dosage Aspir-81 [facility] [address]-75 81 MG Orally Once a day Active 1 tablet Albuterol Sulfate HFA [facility] [address]-76 108 MCG/ACT Inhalation every 4-6 hrs PRN May 06, 2015 Active 2 puffs as needed Losartan Potassium [facility] [address]-95 50.0 Milligram Orally Once a day Active 1 tablet Fish Oil [facility] [address]-91 1000 MG Orally Once a day Active 1 capsule Multi For Her 50+ [facility] [address] Orally Active Unknown Singulair [facility] [address]-40 10 MG Orally Once a day Active 1 tablet in the evening Benzonatate [facility] [address]-82 200 MG Orally Three times a day PRN May 06, 2015 May 16, 2015 Active 1 capsule as needed Metoprolol Succinate ER [facility] [address]-15 25 MG Orally Once a day Active 1 tablet Lexapro [facility] [address]-09 20 mg Orally Once a day Oct 31, 2013 Active 1 tablet Social History Social History Element Qualifiers Date 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 2007May 06, 2015 Tobacco Use: . Are you a: current smoker, How many packs per day? less than a half pack, How many years have you smoked? greater than 30 May 06, 2015 Flu Vaccine: . 2014May 06, 2015 Use of recreational / street drugs? . Answer: No May 06, 2015 Do you have pets? . Status: Yes, Type: dog(s) May 06, 2015 Ethnicity . Status , Is japanese your primary language? Yes May 06, 2015 Marital Status: . , May 06, 2015 Caffeine intake? . Status: Yes, What type: Coffee, Soft Drinks May 06, 2015 Do you exercise? . Answer: No May 06, 2015 Depression Screening: . positive May 06, 2015 Do you drink alcohol? . Status: Yes, Type: Wine, Liquor, How often? Rarely, How much? Socially May 06, 2015 Family history Qualifier Description Comment Date Reported Maternal Grandmother Comment not available May 06, 2015 Paternal Grandmother Comment not available May 06, 2015 Siblings alive Comment not available May 06, 2015 Maternal Grandfather Comment not available May 06, 2015 Children alive 1 son - PTSD 2 sons - high cholesterol May 06, 2015 Father Comment not available May 06, 2015 Paternal Grandfather Comment not available May 06, 2015 Mother Comment not available May 06, 2015 Other: Comment not available May 06, 2015 Vital Signs Date/Time: May 06, 2015 Weight 226 lbs Height 66 in Cardiac Monitoring Heart Rate 80 /min Blood Pressure Diastolic 80 mm Hg Blood Pressure Systolic 130 mm Hg Summary Purpose eClinicalWorks Submission
--- OUTSIDE RECORDS SUMMARY | 2018-05-26 12:51 | XMS REPORT ---
Author Author Nisha Brownlee e[employer] Address Unknown Phone Unavailable Care Team Providers Care Steam Gigger Name Role Phone Nisha Brownlee CP Unavailable Encounters Encounter Location Date FYI [facility] Dec 12, [address] [facility] Jan 23, [address] [facility] Mar 29, [address] [facility] Oct 31, 2014 consult on stress and anxiety [facility] Sep 26, [address] [facility] Oct 31, 2013 FYI/Referral [facility] Dec 05, 2013 CPAP Follow Up [facility] Jan 21, 2015 Needs call back from Medical Staff [facility] Oct 17, [address] [facility] August 13, [address] [facility] Nov 21, 2014 Night [address] [facility] Jan 08, [address] [facility] May 06, [address] [facility] May 15, 2015 fMLA [address] [facility] Mar 17, [address] [facility] Mar 24, 2015 New Refill Request [facility] Feb 16, [address] [facility] Mar 13, 2015 SOFT TISSUE/LAURA [facility] Feb 05, 2015 New Refill Request [facility] Feb 13, 2015 Update Demographics - Personal Info [facility] May 23, 2015 [...] Active Problem Essential hypertension I10 Active Problem Varicose veins of lower extremity I83.93 Active Problem TIA (transient ischemic attack) G45.9 Active Problem Anxiety F41.9 Active Problem Atrial fibrillation, unspecified type I48.91 Active Problem Prediabetes R73.09 Active Medications Medication Code System Code Instructions Start Date End Date Status Dosage Metoprolol Succinate ER [facility] [address]-64 25 MG Orally Once a day Active 1 tablet Singulair [facility] [address]-62 10 mg Orally Once a day Active 1 tablet in the evening Social History Social History Element Qualifiers Date 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 2007Oct 17, 2015 Tobacco Use: . Are you a: current smoker, How many packs per day? less than a half pack, How many years have you smoked? greater than 30 Oct 17, 2015 Flu Vaccine: . 2014Oct 17, 2015 Use of recreational / street drugs? . Answer: No Oct 17, 2015 Do you have pets? . Status: Yes, Type: dog(s) Oct 17, 2015 Ethnicity . Status , Is tajik your primary language? Yes Oct 17, 2015 Marital Status: . , Oct 17, 2015 Caffeine intake? . Status: Yes, What type: Coffee, Soft Drinks Oct 17, 2015 Do you exercise? . Answer: No Oct 17, 2015 Depression Screening: . positive Oct 17, 2015 Do you drink alcohol? . Status: Yes, Type: Wine, Liquor, How often? Rarely, How much? Socially Oct 17, 2015 Summary Purpose eClinicalWorks Submission
--- OUTSIDE RECORDS SUMMARY | 2018-05-26 12:51 | XMS REPORT ---
Author Author Liset Kohli [facility] [place] e[employer] Address Unknown Phone Unavailable Care Team Providers Care Industrial Staff Nurse Name Role Phone Liset Kohli Unavailable Encounters Encounter Location Date FYI [facility] Dec 12, 2013 Refill [facility] Jan 23, 2014 MEDICATION REFILL [facility] Mar 29, 2014 Refill [facility] Oct 31, 2014 consult on stress and anxiety [facility] Sep 26, 2013 DISCUSS MEDS [facility] Oct 31, 2013 FYI/Referral [facility] Dec 05, 2013 CPAP Follow Up [facility] Jan 21, 2015 FOLLOW UP [facility] Nov 21, 2014 Night 2 Sleep Study [facility] Jan 08, 2015 Coughing [facility] May 06, 2015 Unknown [facility] May 15, 2015 fMLA paper work [facility] Mar 17, 2015 Unknown [facility] Mar 24, 2015 New Refill Request [facility] Feb 16, 2015 leg cramps [facility] Mar 13, 2015 SOFT TISSUE/LAURA [facility] Feb 05, 2015 New Refill Request [facility] Feb 13, 2015 [...] Instructions Start Date End Date Status Dosage Singulair [facility] [address]-98 10 mg Orally Once a day Active 1 tablet in the evening Losartan Potassium [facility] [address]-00 50 MG Orally Once a day Active 1 tablet Lexapro [facility] [address]-34 20 mg Orally Once a day Oct 31, 2013 Active 1 tablet Metoprolol Succinate ER [facility] [address]-91 25 MG Orally Once a day Active 1 tablet Social History Social History [...] 06, 2015 Ethnicity . Status , Is frisian your primary language? Yes May 06, 2015 Marital Status: . , May 06, 2015 Caffeine intake? . Status: Yes, What type: Coffee, Soft Drinks May 06, 2015 Do you exercise? . Answer: No May 06, 2015 Depression Screening: . positive May 06, 2015 Do you drink alcohol? . Status: Yes, Type: Wine, Liquor, How often? Rarely, How much? Socially May 06, 2015 Summary Purpose eClinicalWorks Submission
--- OUTSIDE RECORDS SUMMARY | 2018-05-26 12:51 | XMS REPORT ---
Author Author Liset Kohli [facility] e[employer]Works Address Unknown Phone Unavailable Care Team Providers Care High School Counselor Name Role Phone Liset Kohli Unavailable Encounters Encounter Location Date [facility] Jan 21, 2015 FOLLOW UP [facility] [...] type I48.91 Active Problem Prediabetes R73.09 Active Social History Social History Element Qualifiers [...] 06, 2015 Ethnicity . Status , Is sinhala your primary language? Yes May 06, 2015 [...]
[2018-05-26] MEDS ORDERED: ALBUTEROL/IPRATROPIUM 3 ML NEB NEB ONE (13:30)
--- NOTE | 2018-05-26 13:35 | NUR ---
RADIOLOGY AT BEDSIDE FOR CXR AT THIS TIME.
[2018-05-26 13:45] LABS: BASOPHILS % 0.2 % (0.0-1.0); HEMATOCRIT 39.4 % (34.2-44.1); HEMOGLOBIN 13.5 g/dL (12.0-16.0); LYMPHOCYTES # (AUTO) 1.6 (1.0-3.2); LYMPHOCYTES % 29.5 % (18.0-39.1); MEAN CORPUSCULAR HEMOGLOBIN 32.9 pg (28-32); MEAN CORPUSCULAR HGB CONC 34.3 g/dL (31-35); MEAN CORPUSCULAR VOLUME 96.1 fL (81-99); MONOCYTES # (AUTO) 0.3 (0.2-0.8); MONOCYTES % 5.1 % (4.4-11.3); NEUTROPHILS # (AUTO) 3.4 (2.1-6.9); PLATELET COUNT 176 x10e3/uL (140-360); RED CELL DISTRIBUTION WIDTH 12.7 % (11.7-14.4)
--- NOTE | 2018-05-26 13:51 | Diagnostic Imaging Report ---
Examination: Single AP view of the chest. COMPARISON: None. INDICATION: Abdomen, shortness of breath DISCUSSION: Lungs are well-inflated. No focal airspace consolidation, pleural effusion, or pneumothorax. Increased attenuation over the lower lung zones is a consequence of summation of overlying breast tissue. Tortuous thoracic aorta. Normal heart size without overt pulmonary edema. No acute osseous abnormality. IMPRESSION: 1. No acute cardiopulmonary abnormalities. Signed by: Dr. Brent Ham M.D. on 05/26/2018 1:48 PM
[2018-05-26] MEDS ORDERED: DEXAMETHASONE SOD PHOS 10 MG/1 ML VIAL IV ONE (14:00)
[2018-05-26 14:03] LABS: ALANINE AMINOTRANSFERASE 59 IU/L (0-55); ALBUMIN 3.8 g/dL (3.5-5.0); ALKALINE PHOSPHATASE 114 IU/L (40-150); ANION GAP 14.9 mmol/L (8-16); BLOOD UREA NITROGEN 14 mg/dL (7-26); BUN/CREATININE RATIO 18 (6-25); CALCIUM 10.4 mg/dL (8.4-10.2); CARBON DIOXIDE 24 mmol/L (22-29); CHLORIDE 107 mmol/L (98-107); CREATINE KINASE 342 IU/L (29-168); CREATININE, SERUM 0.77 mg/dL (0.57-1.11); EST GLOMERULAR FILTRATION RATE > 60 ML/MIN (60-); GLUCOSE 143 mg/dL (74-118); POTASSIUM 3.9 mmol/L (3.5-5.1); SODIUM 142 mmol/L (136-145)
[2018-05-26 14:42] LABS: INR 0.82; PARTIAL THROMBOPLASTIN TIME 24.1 seconds (23.8-35.5); PROTHROMBIN TIME 11.8 seconds (11.9-14.5)
[2018-05-26 15:49] LABS: CLARITY,URINE CLEAR (CLEAR); COLOR,URINE YELLOW (YELLOW)
[2018-05-26 15:50] LABS: BILIRUBIN,URINE NEGATIVE (NEGATIVE); KETONES,URINE NEGATIVE (NEGATIVE); LEUKOCYTE ESTERASE ,URINE NEGATIVE (NEGATIVE); NITRITE,URINE NEGATIVE (NEGATIVE); PROTEIN,URINE DIPSTICK NEGATIVE (NEGATIVE); URINE UROBILINOGEN 0.2 mg/dL (0.2 - 1)
[2018-05-26 15:57] LABS: EPITHELIAL CELLS,URINE RARE /LPF
[2018-05-26 15:58] LABS: WBC,URINE (MAN) 0-5 /HPF (0-5)
[2018-05-26 15:59] LABS: YEAST,URINE RARE
[2018-05-26] MEDS ORDERED: PREDNISONE20 MG PO (16:17)
[2018-05-26 16:46] VITALS: BP 120/74
== END 2018-05-26 17:00 | disposition home or self-care (01) ==
LOC: ER 12:47
DX: J45.30 Mild persistent asthma, uncomplicated (principal); F41.1 Generalized anxiety disorder; Z88.0 Allergy status to penicillin; Z79.82 Long term (current) use of aspirin; I45.2 Bifascicular block
CPT/HCPCS: 36415; 71045; 80053; 81001; 82550; 82553; 83880; 84484; 85025; 85379; 85610; 85730; 93005; 94640; 99284; J1100

== ENCOUNTER 2018-07-16 12:51 | Emergency (ER) | payer OTHER ==
[~2018-07-16] VITALS: Ht 170.2 cm; Wt 99.8 kg
[~2018-07-16 12:51] MED LIST changes: +PREDNISONE20 MG PO
[2018-07-16 13:52] VITALS: BP 134/66
== END 2018-07-16 13:53 | disposition home or self-care (01) ==
LOC: ER 12:51
DX: M79.621 Pain in right upper arm (principal); G56.01 Carpal tunnel syndrome, right upper limb; I10 Essential (primary) hypertension; J45.909 Unspecified asthma, uncomplicated; Z86.73 Personal history of transient ischemic attack (TIA), and cerebral infarction without residual deficits
CPT/HCPCS: 93005; 99282